=== PATIENT | male | born 1980 | race Caucasian/White ===

== ENCOUNTER 2021-11-12 15:43 | Inpatient (IN) | payer OTHER ==
[2021-11-12 17:17] VITALS: BMI 21.7
[2021-11-12] MEDS ORDERED: LOPERAMIDE HCL 2 MG CAPSULE PO PRN (19:41)
[2021-11-12] MEDS ORDERED: IBUPROFEN 600 MG TABLET (FP) PO PRN (19:41)
[2021-11-12] MEDS ORDERED: MAG HYDROX/AL HYDROX/SIMETH 30 ML UNIT-DOSE CUP PO PRN (19:41)
[2021-11-12] MEDS ORDERED: NICOTINE POLACRILEX 2 MG GUM BUC PRN (19:41)
[2021-11-12] MEDS ORDERED: ACETAMINOPHEN 325 MG TABLET (FP) PO PRN ×2 (19:41)
[2021-11-12] MEDS ORDERED: DICYCLOMINE HCL 10 MG CAPSULE PO PRN (19:41)
[2021-11-12] MEDS ORDERED: BENZOCAINE/MENTHOL (CHLORASEPTIC ) LOZENGE MM PRN (19:41)
[2021-11-12] MEDS ORDERED: BISMUTH SUBSALICYLATE 524 MG/30 ML PO PRN (19:41)
[2021-11-12] MEDS ORDERED: NALOXONE HCL 0.4 MG/ML VIAL IM PRN (19:41)
[2021-11-12] MEDS ORDERED: MAGNESIUM CITRATE 300 ML BOTTLE PO PRN (19:41)
[2021-11-12] MEDS ORDERED: MAGNESIUM HYDROX 2400MG/30ML ORAL SUSPENSION 30 ML CUP PO PRN (19:41)
[2021-11-12] MEDS ORDERED: IBUPROFEN 400 MG TABLET (FP) PO PRN (19:41)
[2021-11-12] MEDS ORDERED: diazePAM 5 MG TABLET PO ONE (21:15)
[2021-11-12] MEDS: diazePAM 5 MG TABLET PO SCH ×2 (22:43→23:51)
[2021-11-12] MEDS: THIAMINE HCL 100 MG TABLET (FP) PO SCH (22:46)
[2021-11-12] MEDS: MELATONIN 5 MG TABLETS PO SCH (22:46)
[2021-11-13] MEDS: diazePAM 5 MG TABLET PO SCH ×4 (05:58→22:16)
[2021-11-13] MEDS: methaDONE HCL 40 MG DISPERSABLE TABLET PO SCH (09:04)
[2021-11-13] MEDS: PRENATAL VITAMINS W/ FOLIC ACID TABLET (FP) PO SCH (10:05)
[2021-11-13] MEDS: METHOCARBAMOL 500 MG TABLET PO PRN ×2 (10:06→22:17)
[2021-11-13 11:20] LABS: HEMOGLOBIN 12.9 GM/dL (11.7-16.9); MCH 30.7 pg (25.7-33.7); MEAN CELL VOLUME 90.4 fl (80-96); MEAN PLT VOLUME 7.7 fl (7.5-11.1); PLATELET COUNT 632 10^3/uL (134-434); RDW 15.4 % (11.9-15.9); WHITE BLOOD COUNT 8.3 K/mm3 (4.0-10.0)
[2021-11-13 11:26] LABS: ALBUMIN 3.2 g/dl (3.4-5.0); CALCIUM 8.8 mg/dL (8.5-10.1)
[2021-11-13 11:27] LABS: BLOOD UREA NITROGEN 22.3 mg/dL (7-18)
[2021-11-13 11:29] LABS: CREATININE 0.7 mg/dL (0.55-1.3)
[2021-11-13 11:31] LABS: BILIRUBIN,TOTAL 0.6 mg/dL (0.2-1); TOT PROT 6.8 g/dl (6.4-8.2)
[2021-11-13] MEDS: diazePAM 5 MG TABLET PO PRN ×2 (13:08→17:43)
[2021-11-13] MEDS: METHYL SALICYLATE/MENTHOL OINT 30 GM TUBE TP SCH ×2 (14:49→22:15)
[2021-11-13] MEDS: MELATONIN 5 MG TABLETS PO SCH (22:14)
[2021-11-13] MEDS: THIAMINE HCL 100 MG TABLET (FP) PO SCH (22:16)
[2021-11-14] MEDS: methaDONE HCL 40 MG DISPERSABLE TABLET PO SCH (05:27)
[2021-11-14] MEDS: diazePAM 5 MG TABLET PO SCH ×3 (05:27→22:35)
[2021-11-14] MEDS: METHOCARBAMOL 500 MG TABLET PO PRN (05:28)
[2021-11-14] MEDS: METHYL SALICYLATE/MENTHOL OINT 30 GM TUBE TP SCH ×2 (10:18→22:37)
[2021-11-14] MEDS: diazePAM 5 MG TABLET PO PRN ×2 (10:19→18:50)
[2021-11-14] MEDS: PRENATAL VITAMINS W/ FOLIC ACID TABLET (FP) PO SCH (10:22)
[2021-11-14] MEDS: GABAPENTIN 300 MG CAPSULE PO SCH ×2 (13:52→22:35)
[2021-11-14] MEDS: NICOTINE 10 MG CARTRIDGE (INHALER) IH PRN (13:53)
[2021-11-14] MEDS: THIAMINE HCL 100 MG TABLET (FP) PO SCH (22:35)
[2021-11-14] MEDS: MELATONIN 5 MG TABLETS PO SCH (22:37)
[2021-11-15] MEDS: diazePAM 5 MG TABLET PO PRN ×3 (01:03→15:29)
[2021-11-15] MEDS: METHOCARBAMOL 500 MG TABLET PO PRN ×3 (01:04→22:20)
[2021-11-15] MEDS: methaDONE HCL 40 MG DISPERSABLE TABLET PO SCH (05:50)
[2021-11-15] MEDS: diazePAM 5 MG TABLET PO SCH ×2 (05:51→17:42)
[2021-11-15] MEDS: GABAPENTIN 300 MG CAPSULE PO SCH ×3 (05:51→22:18)
[2021-11-15] MEDS: PRENATAL VITAMINS W/ FOLIC ACID TABLET (FP) PO SCH (10:05)
[2021-11-15] MEDS: METHYL SALICYLATE/MENTHOL OINT 30 GM TUBE TP SCH ×2 (10:06→22:16)
[2021-11-15] MEDS: NICOTINE 10 MG CARTRIDGE (INHALER) IH PRN (12:43)
[2021-11-15] MEDS: MELATONIN 5 MG TABLETS PO SCH (22:16)
[2021-11-15] MEDS: THIAMINE HCL 100 MG TABLET (FP) PO SCH (22:18)
[2021-11-16] MEDS: methaDONE HCL 40 MG DISPERSABLE TABLET PO SCH (05:38)
[2021-11-16] MEDS: GABAPENTIN 300 MG CAPSULE PO SCH (05:38)
[2021-11-16] MEDS ORDERED: diazePAM 5 MG TABLET PO ONE (06:00)
[2021-11-16 09:17] VITALS: BP 120/75; PULSE 80; TEMP 97.3
[2021-11-16] MEDS: NICOTINE 10 MG CARTRIDGE (INHALER) IH PRN (09:39)
[2021-11-16] MEDS: PRENATAL VITAMINS W/ FOLIC ACID TABLET (FP) PO SCH (10:50)
[2021-11-16] MEDS: METHOCARBAMOL 500 MG TABLET PO PRN (10:51)
[2021-11-16] MEDS: METHYL SALICYLATE/MENTHOL OINT 30 GM TUBE TP SCH (10:53)
== END 2021-11-16 12:22 | disposition other institution (70) | DRG 773 ==
LOC: YASAS 15:43 → Y6N 20:58
PROVIDERS: ADMIT Allergy & Immunology; ATTEND Surgery
PROC: HZ2ZZZZ Detoxification Services for Substance Abuse Treatment (ICD-10-PCS; principal; 2021-11-12)
DX: F10.230 Alcohol dependence with withdrawal, uncomplicated (principal); F13.230 Sedative, hypnotic or anxiolytic dependence with withdrawal, uncomplicated; F11.20 Opioid dependence, uncomplicated; F14.20 Cocaine dependence, uncomplicated; F17.213 Nicotine dependence, cigarettes, with withdrawal; D75.839 Thrombocytosis, unspecified
CPT/HCPCS: 36415; 80053; 84520; 85027; 85032; 86780; 87811; 93005; 93010; C9803-CS; U0003; U0005

== ENCOUNTER 2021-11-16 12:25 | Inpatient (IN) | payer OTHER ==
[~2021-11-16 12:25] MED LIST: LOPERAMIDE HCL 2 MG CAPSULE PO PRN; MAG HYDROX/AL HYDROX/SIMETH 30 ML UNIT-DOSE CUP PO PRN; MAGNESIUM CITRATE 300 ML BOTTLE PO PRN; MAGNESIUM HYDROX 2400MG/30ML ORAL SUSPENSION 30 ML CUP PO PRN; NICOTINE POLACRILEX 2 MG GUM BC PRN; P-EPHED 60MG/TRIPROLIDI 2.5MG TABLET PO PRN; guaiFENesin 200 MG/10 ML 10 ML UNIT-DOSE CUPS PO PRN
[2021-11-16] MEDS: MELATONIN 5 MG TABLETS PO SCH (21:33)
[2021-11-16] MEDS: hydrOXYzine PAMOATE 25 MG CAPSULE (FP) PO PRN (21:33)
[2021-11-16] MEDS: THIAMINE HCL 100 MG TABLET (FP) PO SCH (21:35)
[2021-11-17] MEDS: methaDONE HCL 40 MG DISPERSABLE TABLET PO SCH (06:09)
[2021-11-17] MEDS: PRENATAL VITAMINS W/ FOLIC ACID TABLET (FP) PO SCH (10:30)
[2021-11-17] MEDS: hydrOXYzine PAMOATE 25 MG CAPSULE (FP) PO PRN (10:31)
[2021-11-17] MEDS: NICOTINE 10 MG CARTRIDGE (INHALER) IH PRN ×3 (12:35→22:04)
[2021-11-17] MEDS: GABAPENTIN 300 MG CAPSULE PO SCH ×2 (14:15→21:28)
[2021-11-17] MEDS: METHYL SALICYLATE/MENTHOL OINT 30 GM TUBE TP SCH ×2 (14:16→21:29)
[2021-11-17] MEDS: MELATONIN 5 MG TABLETS PO SCH (21:28)
[2021-11-17] MEDS: THIAMINE HCL 100 MG TABLET (FP) PO SCH (21:28)
[2021-11-18] MEDS: GABAPENTIN 300 MG CAPSULE PO SCH ×3 (06:00→21:23)
[2021-11-18] MEDS: methaDONE HCL 40 MG DISPERSABLE TABLET PO SCH (06:00)
[2021-11-18] MEDS: IBUPROFEN 400 MG TABLET (FP) PO PRN ×3 (06:02→21:24)
[2021-11-18] MEDS: METHYL SALICYLATE/MENTHOL OINT 30 GM TUBE TP SCH ×2 (10:33→23:18)
[2021-11-18] MEDS: PRENATAL VITAMINS W/ FOLIC ACID TABLET (FP) PO SCH (10:33)
[2021-11-18] MEDS: COLLOIDAL OATMEAL 1 BAR EACH TP PRN (10:34)
[2021-11-18] MEDS: NICOTINE 10 MG CARTRIDGE (INHALER) IH PRN ×2 (10:34→23:17)
[2021-11-18] MEDS: ACETAMINOPHEN 325 MG TABLET (FP) PO PRN (10:35)
[2021-11-18] MEDS: MELATONIN 5 MG TABLETS PO SCH (21:23)
[2021-11-18] MEDS: METHOCARBAMOL 500 MG TABLET PO PRN (21:23)
[2021-11-18] MEDS: THIAMINE HCL 100 MG TABLET (FP) PO SCH (21:23)
[2021-11-18] MEDS: hydrOXYzine PAMOATE 25 MG CAPSULE (FP) PO PRN (21:24)
[2021-11-19] MEDS: IBUPROFEN 400 MG TABLET (FP) PO PRN (06:43)
[2021-11-19] MEDS: methaDONE HCL 40 MG DISPERSABLE TABLET PO SCH (06:44)
[2021-11-19] MEDS: GABAPENTIN 300 MG CAPSULE PO SCH ×3 (06:44→21:37)
[2021-11-19] MEDS: METHYL SALICYLATE/MENTHOL OINT 30 GM TUBE TP SCH ×2 (10:27→21:36)
[2021-11-19] MEDS: hydrOXYzine PAMOATE 25 MG CAPSULE (FP) PO PRN ×2 (10:27→21:37)
[2021-11-19] MEDS: PRENATAL VITAMINS W/ FOLIC ACID TABLET (FP) PO SCH (10:27)
[2021-11-19] MEDS: METHOCARBAMOL 500 MG TABLET PO PRN ×2 (10:28→21:37)
[2021-11-19] MEDS: NICOTINE 10 MG CARTRIDGE (INHALER) IH PRN (13:04)
[2021-11-19] MEDS: MELATONIN 5 MG TABLETS PO SCH (21:36)
[2021-11-19] MEDS: THIAMINE HCL 100 MG TABLET (FP) PO SCH (21:37)
[2021-11-20] MEDS: NICOTINE 10 MG CARTRIDGE (INHALER) IH PRN (06:18)
[2021-11-20] MEDS: methaDONE HCL 40 MG DISPERSABLE TABLET PO SCH (06:18)
[2021-11-20] MEDS: GABAPENTIN 300 MG CAPSULE PO SCH ×3 (06:18→21:29)
[2021-11-20] MEDS: METHOCARBAMOL 500 MG TABLET PO PRN ×3 (06:20→21:33)
[2021-11-20] MEDS: hydrOXYzine PAMOATE 25 MG CAPSULE (FP) PO PRN ×2 (06:20→10:03)
[2021-11-20] MEDS: PRENATAL VITAMINS W/ FOLIC ACID TABLET (FP) PO SCH (10:02)
[2021-11-20] MEDS: IBUPROFEN 400 MG TABLET (FP) PO PRN (10:03)
[2021-11-20] MEDS: METHYL SALICYLATE/MENTHOL OINT 30 GM TUBE TP SCH ×2 (10:04→21:30)
[2021-11-20] MEDS: hydrOXYzine PAMOATE 50 MG CAPSULE (FP) PO PRN ×2 (14:16→21:32)
[2021-11-20] MEDS: ACETAMINOPHEN 325 MG TABLET (FP) PO PRN (14:18)
[2021-11-20] MEDS: THIAMINE HCL 100 MG TABLET (FP) PO SCH (21:29)
[2021-11-20] MEDS: MELATONIN 5 MG TABLETS PO SCH (21:29)
[2021-11-21] MEDS: methaDONE HCL 40 MG DISPERSABLE TABLET PO SCH (06:39)
[2021-11-21] MEDS: GABAPENTIN 300 MG CAPSULE PO SCH ×3 (06:39→21:22)
[2021-11-21] MEDS: hydrOXYzine PAMOATE 50 MG CAPSULE (FP) PO PRN (06:41)
[2021-11-21] MEDS: METHYL SALICYLATE/MENTHOL OINT 30 GM TUBE TP SCH ×2 (10:07→21:51)
[2021-11-21] MEDS: PRENATAL VITAMINS W/ FOLIC ACID TABLET (FP) PO SCH (10:07)
[2021-11-21] MEDS: METHOCARBAMOL 500 MG TABLET PO PRN (10:10)
[2021-11-21] MEDS: IBUPROFEN 400 MG TABLET (FP) PO PRN (10:10)
[2021-11-21] MEDS: NICOTINE 10 MG CARTRIDGE (INHALER) IH PRN ×3 (10:10→21:23)
[2021-11-21] MEDS: MELATONIN 5 MG TABLETS PO SCH (21:22)
[2021-11-21] MEDS: THIAMINE HCL 100 MG TABLET (FP) PO SCH (21:22)
[2021-11-22] MEDS: methaDONE HCL 40 MG DISPERSABLE TABLET PO SCH (06:20)
[2021-11-22] MEDS: GABAPENTIN 300 MG CAPSULE PO SCH ×3 (06:20→21:22)
[2021-11-22] MEDS: hydrOXYzine PAMOATE 50 MG CAPSULE (FP) PO PRN ×3 (06:21→21:24)
[2021-11-22] MEDS: PRENATAL VITAMINS W/ FOLIC ACID TABLET (FP) PO SCH (10:03)
[2021-11-22] MEDS: METHYL SALICYLATE/MENTHOL OINT 30 GM TUBE TP SCH ×2 (10:03→22:01)
[2021-11-22] MEDS: NICOTINE 10 MG CARTRIDGE (INHALER) IH PRN ×2 (10:03→21:23)
[2021-11-22] MEDS: METHOCARBAMOL 500 MG TABLET PO PRN ×2 (10:03→21:23)
[2021-11-22] MEDS: MELATONIN 5 MG TABLETS PO SCH (21:22)
[2021-11-22] MEDS: THIAMINE HCL 100 MG TABLET (FP) PO SCH (21:22)
[2021-11-23] MEDS: NICOTINE 10 MG CARTRIDGE (INHALER) IH PRN (06:43)
[2021-11-23] MEDS: GABAPENTIN 300 MG CAPSULE PO SCH ×3 (06:45→22:07)
[2021-11-23] MEDS: methaDONE HCL 40 MG DISPERSABLE TABLET PO SCH (06:45)
[2021-11-23] MEDS: PRENATAL VITAMINS W/ FOLIC ACID TABLET (FP) PO SCH (09:43)
[2021-11-23] MEDS: hydrOXYzine PAMOATE 50 MG CAPSULE (FP) PO PRN ×2 (09:45→22:12)
[2021-11-23] MEDS: METHYL SALICYLATE/MENTHOL OINT 30 GM TUBE TP SCH ×2 (09:45→22:07)
[2021-11-23] MEDS: METHOCARBAMOL 500 MG TABLET PO PRN ×2 (09:45→22:07)
[2021-11-23] MEDS: THIAMINE HCL 100 MG TABLET (FP) PO SCH (22:07)
[2021-11-23] MEDS: MELATONIN 5 MG TABLETS PO SCH (22:07)
[2021-11-24] MEDS: methaDONE HCL 40 MG DISPERSABLE TABLET PO SCH (06:17)
[2021-11-24] MEDS: GABAPENTIN 300 MG CAPSULE PO SCH ×3 (06:18→21:37)
[2021-11-24] MEDS: hydrOXYzine PAMOATE 50 MG CAPSULE (FP) PO PRN ×3 (06:18→21:38)
[2021-11-24] MEDS: PRENATAL VITAMINS W/ FOLIC ACID TABLET (FP) PO SCH (09:54)
[2021-11-24] MEDS: METHYL SALICYLATE/MENTHOL OINT 30 GM TUBE TP SCH ×2 (09:54→21:37)
[2021-11-24] MEDS: METHOCARBAMOL 500 MG TABLET PO PRN (09:54)
[2021-11-24] MEDS: IBUPROFEN 400 MG TABLET (FP) PO PRN (09:54)
[2021-11-24] MEDS: NICOTINE 10 MG CARTRIDGE (INHALER) IH PRN (09:55)
[2021-11-24] MEDS: THIAMINE HCL 100 MG TABLET (FP) PO SCH (21:37)
[2021-11-24] MEDS: MELATONIN 5 MG TABLETS PO SCH (21:37)
[2021-11-25] MEDS: hydrOXYzine PAMOATE 50 MG CAPSULE (FP) PO PRN ×3 (06:33→21:42)
[2021-11-25] MEDS: GABAPENTIN 300 MG CAPSULE PO SCH ×3 (06:33→21:41)
[2021-11-25] MEDS: methaDONE HCL 40 MG DISPERSABLE TABLET PO SCH (06:33)
[2021-11-25] MEDS: PRENATAL VITAMINS W/ FOLIC ACID TABLET (FP) PO SCH (09:38)
[2021-11-25] MEDS: METHYL SALICYLATE/MENTHOL OINT 30 GM TUBE TP SCH ×2 (09:39→21:40)
[2021-11-25] MEDS: MELATONIN 5 MG TABLETS PO SCH (21:40)
[2021-11-25] MEDS: METHOCARBAMOL 500 MG TABLET PO PRN (21:41)
[2021-11-25] MEDS: THIAMINE HCL 100 MG TABLET (FP) PO SCH (21:41)
[2021-11-26] MEDS: methaDONE HCL 40 MG DISPERSABLE TABLET PO SCH (06:19)
[2021-11-26] MEDS: GABAPENTIN 300 MG CAPSULE PO SCH ×3 (06:19→21:36)
[2021-11-26] MEDS: PRENATAL VITAMINS W/ FOLIC ACID TABLET (FP) PO SCH (09:55)
[2021-11-26] MEDS: METHYL SALICYLATE/MENTHOL OINT 30 GM TUBE TP SCH ×2 (09:56→21:37)
[2021-11-26] MEDS: NICOTINE 10 MG CARTRIDGE (INHALER) IH PRN ×2 (09:56→21:35)
[2021-11-26] MEDS: hydrOXYzine PAMOATE 50 MG CAPSULE (FP) PO PRN ×2 (09:57→21:39)
[2021-11-26] MEDS: IBUPROFEN 400 MG TABLET (FP) PO PRN (21:36)
[2021-11-26] MEDS: THIAMINE HCL 100 MG TABLET (FP) PO SCH (21:37)
[2021-11-26] MEDS: MELATONIN 5 MG TABLETS PO SCH (21:37)
[2021-11-26] MEDS: METHOCARBAMOL 500 MG TABLET PO PRN (21:39)
[2021-11-27] MEDS: methaDONE HCL 40 MG DISPERSABLE TABLET PO SCH (06:09)
[2021-11-27] MEDS: GABAPENTIN 300 MG CAPSULE PO SCH ×3 (06:09→21:42)
[2021-11-27] MEDS: hydrOXYzine PAMOATE 50 MG CAPSULE (FP) PO PRN ×2 (06:09→21:42)
[2021-11-27] MEDS: METHYL SALICYLATE/MENTHOL OINT 30 GM TUBE TP SCH ×2 (10:09→21:44)
[2021-11-27] MEDS: PRENATAL VITAMINS W/ FOLIC ACID TABLET (FP) PO SCH (10:09)
[2021-11-27] MEDS: METHOCARBAMOL 500 MG TABLET PO PRN ×2 (10:10→21:43)
[2021-11-27] MEDS: NICOTINE 10 MG CARTRIDGE (INHALER) IH PRN ×2 (10:11→21:43)
[2021-11-27] MEDS: MELATONIN 5 MG TABLETS PO SCH (21:42)
[2021-11-27] MEDS: THIAMINE HCL 100 MG TABLET (FP) PO SCH (21:43)
[2021-11-28] MEDS: hydrOXYzine PAMOATE 50 MG CAPSULE (FP) PO PRN ×2 (06:17→21:32)
[2021-11-28] MEDS: GABAPENTIN 300 MG CAPSULE PO SCH ×3 (06:17→21:31)
[2021-11-28] MEDS: methaDONE HCL 40 MG DISPERSABLE TABLET PO SCH (06:17)
[2021-11-28] MEDS: PRENATAL VITAMINS W/ FOLIC ACID TABLET (FP) PO SCH (10:13)
[2021-11-28] MEDS: METHYL SALICYLATE/MENTHOL OINT 30 GM TUBE TP SCH ×2 (10:13→21:31)
[2021-11-28] MEDS: COLLOIDAL OATMEAL 1 BAR EACH TP PRN (13:34)
[2021-11-28] MEDS: NICOTINE 10 MG CARTRIDGE (INHALER) IH PRN (13:35)
[2021-11-28] MEDS: THIAMINE HCL 100 MG TABLET (FP) PO SCH (21:31)
[2021-11-28] MEDS: MELATONIN 5 MG TABLETS PO SCH (21:31)
[2021-11-28] MEDS: METHOCARBAMOL 500 MG TABLET PO PRN (21:32)
[2021-11-29] MEDS: GABAPENTIN 300 MG CAPSULE PO SCH ×3 (06:03→21:30)
[2021-11-29] MEDS: methaDONE HCL 40 MG DISPERSABLE TABLET PO SCH (06:03)
[2021-11-29] MEDS: PRENATAL VITAMINS W/ FOLIC ACID TABLET (FP) PO SCH (10:22)
[2021-11-29] MEDS: METHYL SALICYLATE/MENTHOL OINT 30 GM TUBE TP SCH ×2 (10:22→21:29)
[2021-11-29] MEDS: METHOCARBAMOL 500 MG TABLET PO PRN ×2 (10:22→21:31)
[2021-11-29] MEDS: hydrOXYzine PAMOATE 50 MG CAPSULE (FP) PO PRN ×3 (10:22→21:30)
[2021-11-29] MEDS: NICOTINE 10 MG CARTRIDGE (INHALER) IH PRN (10:23)
[2021-11-29] MEDS: THIAMINE HCL 100 MG TABLET (FP) PO SCH (21:30)
[2021-11-29] MEDS: MELATONIN 5 MG TABLETS PO SCH (21:30)
[2021-11-30] MEDS: GABAPENTIN 300 MG CAPSULE PO SCH ×3 (06:26→21:19)
[2021-11-30] MEDS: methaDONE HCL 40 MG DISPERSABLE TABLET PO SCH (06:26)
[2021-11-30] MEDS: PRENATAL VITAMINS W/ FOLIC ACID TABLET (FP) PO SCH (10:19)
[2021-11-30] MEDS: METHOCARBAMOL 500 MG TABLET PO PRN ×3 (10:20→21:20)
[2021-11-30] MEDS: hydrOXYzine PAMOATE 50 MG CAPSULE (FP) PO PRN ×3 (10:21→21:19)
[2021-11-30] MEDS: METHYL SALICYLATE/MENTHOL OINT 30 GM TUBE TP SCH ×2 (11:30→21:19)
[2021-11-30] MEDS ORDERED: hydrOXYzine PAMOATE 25 MG CAPSULE (FP) PO ONE (19:07)
[2021-11-30] MEDS: MELATONIN 5 MG TABLETS PO SCH (21:19)
[2021-11-30] MEDS: THIAMINE HCL 100 MG TABLET (FP) PO SCH (21:19)
[2021-12-01] MEDS: methaDONE HCL 40 MG DISPERSABLE TABLET PO SCH (06:05)
[2021-12-01] MEDS: GABAPENTIN 300 MG CAPSULE PO SCH ×3 (06:05→21:23)
[2021-12-01] MEDS: METHYL SALICYLATE/MENTHOL OINT 30 GM TUBE TP SCH ×2 (10:05→21:23)
[2021-12-01] MEDS: PRENATAL VITAMINS W/ FOLIC ACID TABLET (FP) PO SCH (10:05)
[2021-12-01] MEDS: hydrOXYzine PAMOATE 50 MG CAPSULE (FP) PO PRN ×2 (10:06→21:23)
[2021-12-01] MEDS ORDERED: hydrOXYzine PAMOATE 25 MG CAPSULE (FP) PO ONE (10:06)
[2021-12-01] MEDS: METHOCARBAMOL 500 MG TABLET PO PRN ×2 (10:06→21:23)
[2021-12-01] MEDS: MELATONIN 5 MG TABLETS PO SCH (21:23)
[2021-12-01] MEDS: THIAMINE HCL 100 MG TABLET (FP) PO SCH (21:23)
[2021-12-01] MEDS: IBUPROFEN 400 MG TABLET (FP) PO PRN (21:24)
[2021-12-02] MEDS: methaDONE HCL 40 MG DISPERSABLE TABLET PO SCH (05:54)
[2021-12-02] MEDS: GABAPENTIN 300 MG CAPSULE PO SCH ×3 (05:54→21:37)
[2021-12-02] MEDS: PRENATAL VITAMINS W/ FOLIC ACID TABLET (FP) PO SCH (10:10)
[2021-12-02] MEDS: METHYL SALICYLATE/MENTHOL OINT 30 GM TUBE TP SCH ×2 (10:10→22:46)
[2021-12-02] MEDS: METHOCARBAMOL 500 MG TABLET PO PRN ×2 (10:11→21:38)
[2021-12-02] MEDS: hydrOXYzine PAMOATE 50 MG CAPSULE (FP) PO PRN ×3 (10:11→21:37)
[2021-12-02] MEDS: THIAMINE HCL 100 MG TABLET (FP) PO SCH (21:37)
[2021-12-02] MEDS: MELATONIN 5 MG TABLETS PO SCH (21:37)
[2021-12-03] MEDS: methaDONE HCL 40 MG DISPERSABLE TABLET PO SCH (06:02)
[2021-12-03] MEDS: GABAPENTIN 300 MG CAPSULE PO SCH ×3 (06:02→21:56)
[2021-12-03] MEDS: PRENATAL VITAMINS W/ FOLIC ACID TABLET (FP) PO SCH (10:06)
[2021-12-03] MEDS: METHYL SALICYLATE/MENTHOL OINT 30 GM TUBE TP SCH ×2 (10:07→22:45)
[2021-12-03] MEDS: hydrOXYzine PAMOATE 50 MG CAPSULE (FP) PO PRN ×2 (10:08→21:57)
[2021-12-03] MEDS: MELATONIN 5 MG TABLETS PO SCH (21:55)
[2021-12-03] MEDS: METHOCARBAMOL 500 MG TABLET PO PRN (21:56)
[2021-12-03] MEDS: THIAMINE HCL 100 MG TABLET (FP) PO SCH (21:56)
[2021-12-04] MEDS: GABAPENTIN 300 MG CAPSULE PO SCH ×3 (05:51→21:39)
[2021-12-04] MEDS: methaDONE HCL 40 MG DISPERSABLE TABLET PO SCH (05:51)
[2021-12-04] MEDS: hydrOXYzine PAMOATE 50 MG CAPSULE (FP) PO PRN ×3 (05:51→21:39)
[2021-12-04] MEDS: METHYL SALICYLATE/MENTHOL OINT 30 GM TUBE TP SCH ×2 (09:58→21:38)
[2021-12-04] MEDS: PRENATAL VITAMINS W/ FOLIC ACID TABLET (FP) PO SCH (09:58)
[2021-12-04] MEDS: METHOCARBAMOL 500 MG TABLET PO PRN ×2 (09:59→21:39)
[2021-12-04] MEDS: NICOTINE 10 MG CARTRIDGE (INHALER) IH PRN (13:50)
[2021-12-04] MEDS: MELATONIN 5 MG TABLETS PO SCH (21:38)
[2021-12-04] MEDS: THIAMINE HCL 100 MG TABLET (FP) PO SCH (21:39)
[2021-12-05] MEDS: methaDONE HCL 40 MG DISPERSABLE TABLET PO SCH (06:05)
[2021-12-05] MEDS: GABAPENTIN 300 MG CAPSULE PO SCH ×3 (06:05→21:20)
[2021-12-05] MEDS: PRENATAL VITAMINS W/ FOLIC ACID TABLET (FP) PO SCH (09:53)
[2021-12-05] MEDS: NICOTINE 10 MG CARTRIDGE (INHALER) IH PRN (09:54)
[2021-12-05] MEDS: hydrOXYzine PAMOATE 50 MG CAPSULE (FP) PO PRN ×2 (09:54→21:21)
[2021-12-05] MEDS: METHYL SALICYLATE/MENTHOL OINT 30 GM TUBE TP SCH ×2 (09:58→21:19)
[2021-12-05] MEDS: MELATONIN 5 MG TABLETS PO SCH (21:19)
[2021-12-05] MEDS: THIAMINE HCL 100 MG TABLET (FP) PO SCH (21:20)
[2021-12-05] MEDS: METHOCARBAMOL 500 MG TABLET PO PRN (21:21)
[2021-12-06] MEDS: GABAPENTIN 300 MG CAPSULE PO SCH ×3 (05:52→21:33)
[2021-12-06] MEDS: methaDONE HCL 40 MG DISPERSABLE TABLET PO SCH (05:52)
[2021-12-06] MEDS: METHYL SALICYLATE/MENTHOL OINT 30 GM TUBE TP SCH ×2 (10:00→21:32)
[2021-12-06] MEDS: hydrOXYzine PAMOATE 50 MG CAPSULE (FP) PO PRN ×2 (10:01→21:33)
[2021-12-06] MEDS: NICOTINE 10 MG CARTRIDGE (INHALER) IH PRN (10:01)
[2021-12-06] MEDS: PRENATAL VITAMINS W/ FOLIC ACID TABLET (FP) PO SCH (10:01)
[2021-12-06] MEDS: MELATONIN 5 MG TABLETS PO SCH (21:32)
[2021-12-06] MEDS: THIAMINE HCL 100 MG TABLET (FP) PO SCH (21:34)
[2021-12-07] MEDS: GABAPENTIN 300 MG CAPSULE PO SCH ×3 (06:10→21:35)
[2021-12-07] MEDS: methaDONE HCL 40 MG DISPERSABLE TABLET PO SCH (06:11)
[2021-12-07] MEDS: PRENATAL VITAMINS W/ FOLIC ACID TABLET (FP) PO SCH (10:05)
[2021-12-07] MEDS: hydrOXYzine PAMOATE 50 MG CAPSULE (FP) PO PRN ×3 (10:06→21:36)
[2021-12-07] MEDS: METHYL SALICYLATE/MENTHOL OINT 30 GM TUBE TP SCH ×2 (11:13→21:59)
[2021-12-07] MEDS: THIAMINE HCL 100 MG TABLET (FP) PO SCH (21:35)
[2021-12-07] MEDS: MELATONIN 5 MG TABLETS PO SCH (21:35)
[2021-12-07] MEDS: METHOCARBAMOL 500 MG TABLET PO PRN (21:36)
[2021-12-07] MEDS ORDERED: hydrOXYzine PAMOATE 25 MG CAPSULE (FP) PO ONE (21:36)
[2021-12-08] MEDS: GABAPENTIN 300 MG CAPSULE PO SCH ×3 (05:50→21:33)
[2021-12-08] MEDS: methaDONE HCL 40 MG DISPERSABLE TABLET PO SCH (06:08)
[2021-12-08] MEDS: METHYL SALICYLATE/MENTHOL OINT 30 GM TUBE TP SCH ×2 (09:57→21:33)
[2021-12-08] MEDS: PRENATAL VITAMINS W/ FOLIC ACID TABLET (FP) PO SCH (09:57)
[2021-12-08] MEDS: NICOTINE 10 MG CARTRIDGE (INHALER) IH PRN ×2 (09:58→14:03)
[2021-12-08] MEDS: hydrOXYzine PAMOATE 50 MG CAPSULE (FP) PO PRN ×2 (09:59→21:33)
[2021-12-08] MEDS: METHOCARBAMOL 500 MG TABLET PO PRN ×2 (09:59→21:33)
[2021-12-08] MEDS: THIAMINE HCL 100 MG TABLET (FP) PO SCH (21:33)
[2021-12-08] MEDS: MELATONIN 5 MG TABLETS PO SCH (21:33)
[2021-12-09] MEDS: methaDONE HCL 40 MG DISPERSABLE TABLET PO SCH (06:20)
[2021-12-09] MEDS: GABAPENTIN 300 MG CAPSULE PO SCH ×3 (06:20→21:32)
[2021-12-09] MEDS: METHYL SALICYLATE/MENTHOL OINT 30 GM TUBE TP SCH ×2 (09:53→21:33)
[2021-12-09] MEDS: PRENATAL VITAMINS W/ FOLIC ACID TABLET (FP) PO SCH (09:53)
[2021-12-09] MEDS: IBUPROFEN 400 MG TABLET (FP) PO PRN (18:37)
[2021-12-09] MEDS: METHOCARBAMOL 500 MG TABLET PO PRN (21:32)
[2021-12-09] MEDS: THIAMINE HCL 100 MG TABLET (FP) PO SCH (21:32)
[2021-12-09] MEDS: MELATONIN 5 MG TABLETS PO SCH (21:33)
[2021-12-09] MEDS: hydrOXYzine PAMOATE 50 MG CAPSULE (FP) PO PRN (21:34)
[2021-12-10] MEDS: methaDONE HCL 40 MG DISPERSABLE TABLET PO SCH (06:07)
[2021-12-10] MEDS: GABAPENTIN 300 MG CAPSULE PO SCH ×3 (06:07→21:36)
[2021-12-10] MEDS: METHOCARBAMOL 500 MG TABLET PO PRN ×2 (09:51→21:37)
[2021-12-10] MEDS: METHYL SALICYLATE/MENTHOL OINT 30 GM TUBE TP SCH ×2 (09:52→21:37)
[2021-12-10] MEDS: PRENATAL VITAMINS W/ FOLIC ACID TABLET (FP) PO SCH (09:52)
[2021-12-10] MEDS: hydrOXYzine PAMOATE 50 MG CAPSULE (FP) PO PRN ×2 (09:52→21:37)
[2021-12-10] MEDS: MELATONIN 5 MG TABLETS PO SCH (21:37)
[2021-12-10] MEDS: THIAMINE HCL 100 MG TABLET (FP) PO SCH (21:37)
[2021-12-11] MEDS: methaDONE HCL 40 MG DISPERSABLE TABLET PO SCH (06:17)
[2021-12-11] MEDS: GABAPENTIN 300 MG CAPSULE PO SCH ×3 (06:17→21:39)
[2021-12-11] MEDS: PRENATAL VITAMINS W/ FOLIC ACID TABLET (FP) PO SCH (09:37)
[2021-12-11] MEDS: hydrOXYzine PAMOATE 50 MG CAPSULE (FP) PO PRN ×2 (09:38→21:39)
[2021-12-11] MEDS: METHYL SALICYLATE/MENTHOL OINT 30 GM TUBE TP SCH ×2 (09:38→21:40)
[2021-12-11] MEDS: METHOCARBAMOL 500 MG TABLET PO PRN (21:39)
[2021-12-11] MEDS: THIAMINE HCL 100 MG TABLET (FP) PO SCH (21:39)
[2021-12-11] MEDS: MELATONIN 5 MG TABLETS PO SCH (21:40)
[2021-12-12] MEDS: methaDONE HCL 40 MG DISPERSABLE TABLET PO SCH (06:40)
[2021-12-12] MEDS: GABAPENTIN 300 MG CAPSULE PO SCH ×3 (06:40→21:27)
[2021-12-12] MEDS: NICOTINE 10 MG CARTRIDGE (INHALER) IH PRN (09:57)
[2021-12-12] MEDS: PRENATAL VITAMINS W/ FOLIC ACID TABLET (FP) PO SCH (09:57)
[2021-12-12] MEDS: METHYL SALICYLATE/MENTHOL OINT 30 GM TUBE TP SCH ×2 (09:58→22:14)
[2021-12-12] MEDS: METHOCARBAMOL 500 MG TABLET PO PRN (21:27)
[2021-12-12] MEDS: THIAMINE HCL 100 MG TABLET (FP) PO SCH (21:27)
[2021-12-12] MEDS: hydrOXYzine PAMOATE 50 MG CAPSULE (FP) PO PRN (21:28)
[2021-12-12] MEDS: MELATONIN 5 MG TABLETS PO SCH (22:14)
[2021-12-13] MEDS: GABAPENTIN 300 MG CAPSULE PO SCH ×3 (06:28→21:27)
[2021-12-13] MEDS: methaDONE HCL 40 MG DISPERSABLE TABLET PO SCH (06:28)
[2021-12-13] MEDS: PRENATAL VITAMINS W/ FOLIC ACID TABLET (FP) PO SCH (09:42)
[2021-12-13] MEDS: METHYL SALICYLATE/MENTHOL OINT 30 GM TUBE TP SCH ×2 (09:42→21:27)
[2021-12-13] MEDS: NICOTINE 10 MG CARTRIDGE (INHALER) IH PRN (09:42)
[2021-12-13] MEDS: hydrOXYzine PAMOATE 50 MG CAPSULE (FP) PO PRN (21:27)
[2021-12-13] MEDS: METHOCARBAMOL 500 MG TABLET PO PRN (21:27)
[2021-12-13] MEDS: THIAMINE HCL 100 MG TABLET (FP) PO SCH (21:27)
[2021-12-13] MEDS: MELATONIN 5 MG TABLETS PO SCH (21:27)
[2021-12-14] MEDS: GABAPENTIN 300 MG CAPSULE PO SCH ×3 (05:58→21:21)
[2021-12-14] MEDS: methaDONE HCL 40 MG DISPERSABLE TABLET PO SCH (05:58)
[2021-12-14] MEDS: PRENATAL VITAMINS W/ FOLIC ACID TABLET (FP) PO SCH (10:02)
[2021-12-14] MEDS: COLLOIDAL OATMEAL 1 BAR EACH TP PRN (10:03)
[2021-12-14] MEDS: METHYL SALICYLATE/MENTHOL OINT 30 GM TUBE TP SCH ×2 (10:03→21:21)
[2021-12-14] MEDS: NICOTINE 10 MG CARTRIDGE (INHALER) IH PRN (10:04)
[2021-12-14] MEDS: hydrOXYzine PAMOATE 50 MG CAPSULE (FP) PO PRN (21:21)
[2021-12-14] MEDS: METHOCARBAMOL 500 MG TABLET PO PRN (21:21)
[2021-12-14] MEDS: THIAMINE HCL 100 MG TABLET (FP) PO SCH (21:21)
[2021-12-14] MEDS: MELATONIN 5 MG TABLETS PO SCH (21:21)
[2021-12-15] MEDS: methaDONE HCL 40 MG DISPERSABLE TABLET PO SCH (06:33)
[2021-12-15] MEDS: GABAPENTIN 300 MG CAPSULE PO SCH ×3 (06:34→21:30)
[2021-12-15] MEDS: PRENATAL VITAMINS W/ FOLIC ACID TABLET (FP) PO SCH (09:59)
[2021-12-15] MEDS: NICOTINE 10 MG CARTRIDGE (INHALER) IH PRN (09:59)
[2021-12-15] MEDS: METHYL SALICYLATE/MENTHOL OINT 30 GM TUBE TP SCH ×2 (10:15→21:30)
[2021-12-15] MEDS ORDERED: ASPIRIN 325 MG TABLET PO SCH (13:15)
[2021-12-15] MEDS: ASPIRIN 81 MG CHEWABLE TABLETS PO SCH (14:46)
[2021-12-15] MEDS: METHOCARBAMOL 500 MG TABLET PO PRN (21:29)
[2021-12-15] MEDS: THIAMINE HCL 100 MG TABLET (FP) PO SCH (21:29)
[2021-12-15] MEDS: MELATONIN 5 MG TABLETS PO SCH (21:30)
[2021-12-15] MEDS: hydrOXYzine PAMOATE 50 MG CAPSULE (FP) PO PRN (21:30)
[2021-12-16] MEDS: methaDONE HCL 40 MG DISPERSABLE TABLET PO SCH (06:17)
[2021-12-16] MEDS: GABAPENTIN 300 MG CAPSULE PO SCH ×3 (06:17→21:12)
[2021-12-16] MEDS: ASPIRIN 81 MG CHEWABLE TABLETS PO SCH (10:34)
[2021-12-16] MEDS: METHYL SALICYLATE/MENTHOL OINT 30 GM TUBE TP SCH ×2 (10:34→21:12)
[2021-12-16] MEDS: PRENATAL VITAMINS W/ FOLIC ACID TABLET (FP) PO SCH (10:34)
[2021-12-16] MEDS: hydrOXYzine PAMOATE 50 MG CAPSULE (FP) PO PRN ×2 (10:35→21:12)
[2021-12-16] MEDS: NICOTINE 10 MG CARTRIDGE (INHALER) IH PRN (12:04)
[2021-12-16] MEDS: MELATONIN 5 MG TABLETS PO SCH (21:12)
[2021-12-16] MEDS: THIAMINE HCL 100 MG TABLET (FP) PO SCH (21:12)
[2021-12-16] MEDS: METHOCARBAMOL 500 MG TABLET PO PRN (21:12)
[2021-12-17] MEDS: GABAPENTIN 300 MG CAPSULE PO SCH (06:23)
[2021-12-17] MEDS: methaDONE HCL 40 MG DISPERSABLE TABLET PO SCH (06:23)
[2021-12-17 06:54] VITALS: BP 134/66; PULSE 54; TEMP 97.7
[2021-12-17] MEDS: ASPIRIN 81 MG CHEWABLE TABLETS PO SCH (11:15)
[2021-12-17] MEDS: METHYL SALICYLATE/MENTHOL OINT 30 GM TUBE TP SCH (11:15)
[2021-12-17] MEDS: PRENATAL VITAMINS W/ FOLIC ACID TABLET (FP) PO SCH (11:15)
== END 2021-12-17 12:05 | disposition home or self-care (01) | DRG 772 ==
LOC: YASAS 12:25 → Y5N 12:26
PROVIDERS: ADMIT Allergy & Immunology; ATTEND Psychiatry & Neurology Pain Medicine
PROC: HZ42ZZZ Group Counseling for Substance Abuse Treatment, Cognitive-Behavioral (ICD-10-PCS; principal; 2021-11-16)
DX: F10.20 Alcohol dependence, uncomplicated (principal); F11.20 Opioid dependence, uncomplicated; F14.20 Cocaine dependence, uncomplicated; F13.20 Sedative, hypnotic or anxiolytic dependence, uncomplicated; F15.20 Other stimulant dependence, uncomplicated; F12.20 Cannabis dependence, uncomplicated; F17.210 Nicotine dependence, cigarettes, uncomplicated; F19.280 Other psychoactive substance dependence with psychoactive substance-induced anxiety disorder; F19.282 Other psychoactive substance dependence with psychoactive substance-induced sleep disorder; F43.10 Post-traumatic stress disorder, unspecified; F90.9 Attention-deficit hyperactivity disorder, unspecified type; D75.839 Thrombocytosis, unspecified; Z91.410 Personal history of adult physical and sexual abuse; Z56.0 Unemployment, unspecified; Z59.00 Homelessness unspecified